=== PATIENT | female | born 1950 | race Caucasian/White ===

== ENCOUNTER 2020-08-06 11:54 | Inpatient (IN) | payer OTHER, MEDICARE, SELFPAY ==
[~2020-08-06] VITALS: Ht 160 cm; Wt 77.1 kg
[2020-08-06 12:15] VITALS: BP_SYST 159
--- NOTE | 2020-08-06 12:15 | NUR ---
Pt came to ER after having a positive COVID test, states she had worsening symptoms since last night. Pt resting in gurney, AO4, VSS, O2 WNL, pt shows no obvious signs of distress.
--- NOTE | 2020-08-06 12:15 | NUR ---
Patient to ER bed 8 to gown for evaluation. Side rails up.
--- NOTE | 2020-08-06 12:25 | NUR ---
ER at bedside examining patient.
[2020-08-06 13:17] LABS: BASOPHILS % (AUTO) 0.3 % (0.0-2.0); EOSINOPHILS % (AUTO) 0.1 % (0.0-4.0); HEMATOCRIT 38.7 % (36-48); HEMOGLOBIN 12.9 g/dL (12.0-16.0); LYMPHOCYTES # (AUTO) 0.6 K/uL (1.0-5.5); LYMPHOCYTES % (AUTO) 12.5 % (20.5-51.5); MEAN CORPUSCULAR HEMOGLOBIN 30 pg (27-31); MEAN CORPUSCULAR HGB CONC 33 % (32-36); MEAN CORPUSCULAR VOLUME 90 fL (79.0-98.0); MONOCYTES # (AUTO) 0.6 K/uL (0.0-1.0); MONOCYTES % (AUTO) 11.5 % (1.7-9.3); NEUTROPHILS # (AUTO) 3.9 K/uL (1.8-7.7); NEUTROPHILS % (AUTO) 75.6 % (40.0-70.0); PLATELET COUNT (AUTO) 185 K/uL (130-430); RED CELL DISTRIBUTION WIDTH 13.6 % (9.0-15.0); WHITE BLOOD COUNT (AUTO) 5.2 K/uL (4.8-10.8)
--- NOTE | 2020-08-06 13:20 | NUR ---
Pt resting in gurney O2 sat WNL may desat with activity
[2020-08-06 13:22] LABS: ANION GAP 8 (5-15); CALCIUM 9.4 mg/dL (8.4-11.0); CHLORIDE 100 mmol/L (98-107); CREATININE 1.59 mg/dL (0.55-1.30); GLUCOSE 136 mg/dL (70-99); POTASSIUM 3.9 mmol/L (3.5-5.1); SODIUM SERUM 134 mmol/L (136-145); UREA NITROGEN, BLOOD 34 mg/dL (8-21)
[2020-08-06 13:27] LABS: ALANINE AMINOTRANSFERASE 25 U/L (12-78); ALBUMIN 3.1 g/dL (3.4-4.8); ASPARTATE AMINOTRANSFERASE 30 U/L (10-37); C-REACTIVE PROTEIN QUANT 8.4 mg/dL (0-0.5); LACTATE DEHYDROGENASE 200 U/L (81-234); TOTAL BILIRUBIN 0.5 mg/dL (0.0-1.0)
[2020-08-06 13:28] LABS: INR 0.9 (0.8-1.2); PROTHROMBIN TIME 9.7 SECS (9.5-12.5)
[2020-08-06] MEDS ORDERED: DEXAMETHASONE SOD PHOSPHATE 10 MG/ML VIAL IVP ONE (13:45)
[2020-08-06] MEDS ORDERED: NACL 0.9% 1,000 ML IV ONE (13:45)
--- NOTE | 2020-08-06 14:56 | NUR ---
Pt resting in [facility] no distress noted.
--- NOTE | 2020-08-06 15:52 | NUR ---
Patient will be admitted to care of [facility]. Admitted to Tele unit. Will go to room 124B. Belongings list completed. Complete and up to date summary report printed. SBAR report to be given at bedside with opportunity for questions.
--- NOTE | 2020-08-06 16:40 | NUR ---
CONSULTATION PAGED/CALLED Reason for Consultation: ID Person Who was Notified: MADELYN Consulting Physician: STAN Dressage Instructor Specialty: ID Ordering Physician: Rebecca LOERA
[2020-08-06 16:50] VITALS: BP_SYST 136
--- NOTE | 2020-08-06 17:00 | NUR ---
Note Pt arrived on floor from ED via gurney. No SOB/resp distress or pain/discomfort noted at this time. Pt was oriented to nursing routines and procedures Pt oriented to call light and questions/concerns were answered at this time. IV in right hand intact and patent. Call light within reach.
--- NOTE | 2020-08-06 19:00 | NUR ---
Note Pt sitting up in bed eating her dinner. No SOB/resp distress or pain/discomfort noted all shift. Tele unit attached and intact all shift (applied on admission to floor). IV in right hand intact and patent infusing IVF's well. Pt was checked on q1' and PRN for needs and care. Pt was checked on for safety and isolation precautions all shift. Pt's bed in low position and side rails up. No needs noted all shift. Call light within reach.
--- NOTE | 2020-08-06 19:20 | NUR ---
Report received from day shift nurse. Pt is lying in bed fully awake, alert and oriented x4. Pt is on room air and oxygen saturation is 92%. No shortness of breath noted at this time. Pt denies pain or discomfort. IV site in right hand is without any signs of infiltration. Fall, droplet isolation and safety precautions are in place. Call light is with pt and bed is in lowest/locked positions.
[2020-08-06 20:00] VITALS: BP_SYST 124
--- NOTE | 2020-08-06 21:00 | NUR ---
Pt is resting quietly in bed. No c/o pain or discomfort. Fall, droplet isolation and safety precautions are in place.
[2020-08-06] MEDS ORDERED: NALOXONE HCL 0.4 MG/ML AMP (NARCAN) IVP PRN ×2 (21:45)
[2020-08-06] MEDS ORDERED: HYDROcodone/ACETAMIN 10-325 MG TAB PO PRN (21:45)
[2020-08-06] MEDS ORDERED: HYDROcodone/ACETAMIN 5-325 MG TAB (NORCO/ VICODIN) PO PRN (21:45)
[2020-08-06] MEDS ORDERED: LORazepam 2 MG/ML VIAL IVP PRN (21:45)
[2020-08-06] MEDS ORDERED: ONDANSETRON HCL 4 MG/2 ML VIAL IVP PRN (21:45)
[2020-08-06] MEDS ORDERED: ACETAMINOPHEN 325 MG TABLET PO PRN (21:45)
[2020-08-06] MEDS ORDERED: *HEPARIN PER PHARMACY XX ONE (21:45)
[2020-08-06] MEDS ORDERED: ALBUTEROL SULFATE 0.083% 2.5 MG/3 ML VIAL.NEB INH PRN (21:45)
[2020-08-06] MEDS ORDERED: HEPARIN SODIUM,PORCINE 3000 UNITS/0.6 ML BOLUS IVP PRN (22:00)
[2020-08-06] MEDS ORDERED: NORMAL SALINE 5 ML DISP.SYRIN IVF SCH (22:00)
[2020-08-06] MEDS ORDERED: HEPARIN SODIUM,PORCINE 2000 UNITS/0.4 ML BOLUS IVP PRN (22:00)
[2020-08-06] MEDS ORDERED: HEPARIN SODIUM,PORCINE 5,000 UNITS/ML VIAL IV ONE (22:15)
--- NOTE | 2020-08-06 22:30 | NUR ---
New IV line started in left hand with Angiocath 22G after four attempts by 2 RNs. Heparin drip and IV antibiotic to be started tonight as ordered by Dr. Den Ramon.
[2020-08-06] MEDS: HEPARIN 25,000 UNITS in 250 ML PREMIX IV PRN (22:55)
[2020-08-06] MEDS: NORMAL SALINE 5 ML DISP.SYRIN IVF SCH (22:55)
--- NOTE | 2020-08-06 22:55 | NUR ---
Heparin drip started in right hand at 1400 units/hr (14ml/hr) after bolus dose of 6,000 units was given IVP per dosing by Pharmacist. IV site is without any signs of infiltration. Will order PTT for 0455. Pt is resting quietly in bed. No c/o pain or discomfort.
[2020-08-06] MEDS: cefTRIAXone 1 GM IVPB PREMIX 50 ML IV SCH (23:34)
[2020-08-06] MEDS ORDERED: AZITHROMYCIN 500 MG/VIAL (ZITHROMAX) IV ONE (23:46)
[2020-08-06] MEDS ORDERED: cefTRIAXone 1 GM IVPB PREMIX 50 ML IV ONE (23:46)
[2020-08-06] MEDS: AZITHROMYCIN 500 MG in NS 250 ML IV SCH (23:54)
[2020-08-07] VITALS: BP_SYST 137
--- NOTE | 2020-08-07 01:00 | NUR ---
Heparin drip is infusing well in RH. No signs of active bleeding noted. Call light is with pt and bed is in lowest/locked positions.
--- NOTE | 2020-08-07 02:30 | NUR ---
Pt ambulated to the bathroom and back to bed with steady gait. Pt thought she was going to have a bowel movement, but pt passed gas only. No c/o pain or discomfort. Call light is with pt and bed is in the lowest/locked positions.
--- NOTE | 2020-08-07 03:03 | NUR ---
CONSULTATION PAGED/CALLED Reason for Consultation: DYLAN Person Who was Notified: NORMA Consulting Physician: DR. IQBAL Weight Recorder Specialty: Ordering Physician: DR. Den LOERA
--- NOTE | 2020-08-07 03:55 | NUR ---
Pt is sleeping without any distress noted. Heparin drip is infusing well in right hand at 1400 units/hr (14ml/hr) without any signs of infiltration. No evidence of active bleeding noted. Call light is with pt and bed is in the lowest/locked positions.
--- NOTE | 2020-08-07 05:00 | NUR ---
Pt ambulated to the bathroom with steady gait and voided clear yellowish urine. No c/o pain or discomfort. Heparin drip is infusing well in right hand.
--- NOTE | 2020-08-07 05:15 | NUR ---
0515 PTT result still pending. Report given to day shift nurse.
[2020-08-07] MEDS: NORMAL SALINE 5 ML DISP.SYRIN IVF SCH ×3 (05:44→21:06)
[2020-08-07] MEDS: DEXAMETHASONE SOD PHOSPHATE 10 MG/ML VIAL IVP SCH (06:01)
--- NOTE | 2020-08-07 06:28 | NUR ---
Pt is resting comfortably in bed. 0515 PTT result still pending. Heparin drip is infusing well at 1400 units/hr (14ml/hr) in right hand without any signs of infiltration. Fall, droplet isolation and safety precautions are in place. Will endorse to day shift nurse.
[2020-08-07 06:51] LABS: BASOPHILS % (AUTO) 0.1 % (0.0-2.0); HEMATOCRIT 34.8 % (36-48); HEMOGLOBIN 11.7 g/dL (12.0-16.0); LYMPHOCYTES # (AUTO) 0.5 K/uL (1.0-5.5); LYMPHOCYTES % (AUTO) 8.9 % (20.5-51.5); MEAN CORPUSCULAR HEMOGLOBIN 30 pg (27-31); MEAN CORPUSCULAR HGB CONC 34 % (32-36); MEAN CORPUSCULAR VOLUME 89 fL (79.0-98.0); MONOCYTES # (AUTO) 0.6 K/uL (0.0-1.0); MONOCYTES % (AUTO) 12.3 % (1.7-9.3); NEUTROPHILS # (AUTO) 4.1 K/uL (1.8-7.7); NEUTROPHILS % (AUTO) 78.7 % (40.0-70.0); PLATELET COUNT (AUTO) 187 K/uL (130-430); RED BLOOD CELL COUNT(AUTO) 3.91 MIL/uL (4.2-6.2); RED CELL DISTRIBUTION WIDTH 13.1 % (9.0-15.0); WHITE BLOOD COUNT (AUTO) 5.2 K/uL (4.8-10.8)
[2020-08-07] MEDS: IPRATROPIUM BROM 0.5 MG/2.5 ML VIAL.NEB (ATROVENT) INH SCH ×5 (07:00→23:00)
[2020-08-07 07:01] LABS: ANION GAP 9 (5-15); CALCIUM 8.4 mg/dL (8.4-11.0); CHLORIDE 104 mmol/L (98-107); CREATININE 1.35 mg/dL (0.55-1.30); GLUCOSE 142 mg/dL (70-99); PHOSPHORUS 2.3 mg/dL (2.7-4.5); POTASSIUM 3.6 mmol/L (3.5-5.1); SODIUM SERUM 138 mmol/L (136-145); UREA NITROGEN, BLOOD 31 mg/dL (8-21)
[2020-08-07 07:44] LABS: C-REACTIVE PROTEIN QUANT 7.6 mg/dL (0-0.5)
[2020-08-07 08:00] VITALS: BP_SYST 133
--- NOTE | 2020-08-07 08:00 | NUR ---
Note Pt sitting up in bed eating her breakfast with O2 on at 2L/nc. Tele unit attached and intact at this time. Left hand IV and right hand IV intact and patent at this time. No SOB/resp distress or pain/discomfort noted at this time. No needs noted. Call light within reach. Bed in low position and side rails raised. Addendum: 08/07/20 at 1157 by Yessy Longo RN PTT results back - Heparin rate adjusted and bolus given IVP.
[2020-08-07] MEDS: HEPARIN 25,000 UNITS in 250 ML PREMIX IV PRN ×2 (08:01→14:22)
[2020-08-07 08:49] LABS: ERYTHROCYTE SEDIMENTATION RATE 53 MM/HR (0-20)
--- NOTE | 2020-08-07 09:40 | NUR ---
Note Dr Alvarez (nephro) on the floor to assess pt and check labs at this time.
--- NOTE | 2020-08-07 09:45 | NUR ---
Note Dr Bowen ([facility]) on the floor to assess pt and check labs. spoke to pt's daughter in law and answered questions/concerns at this time.
[2020-08-07 10:15] VITALS: BP_SYST 133
--- NOTE | 2020-08-07 11:50 | NUR ---
Note Dr Connelly on the floor to assess pt and check labs. US renal was done at bedside at this time. Pt tolerated procedure well. Pt was assisted with standby assist to restroom with IV pole. Pt ambulated with steady gait. No needs noted at this time. Call light within reach.
[2020-08-07 12:00] VITALS: BP_SYST 122
--- NOTE | 2020-08-07 12:00 | NUR ---
Note Dr Connelly was asked if COVID PCR test needs to done now here at the hospital (pt is positive COVID from 10 days ago diagnosis)
--- NOTE | 2020-08-07 12:50 | NUR ---
Note mathematics technician at pt's bedside to do 2D-echo at this time.
[2020-08-07] MEDS ORDERED: CHOLECALCIFEROL (VITAMIN D3) 2,000 UNIT TABLET PO ONE (13:00)
[2020-08-07] MEDS ORDERED: ASCORBIC ACID 500 MG TABLET PO ONE (13:00)
--- NOTE | 2020-08-07 14:35 | NUR ---
Note Pt resting in bed with Heparin Drip infusing through left hand IV site. Dr Connelly explained the Convalescent Plasma that pt is going to receive - questions/concerns were answered at this time. Pt gave verbal consent for Convalescent Plasma - consent signed and pt's family member - Minnie(working in Admitting dept) - was notified.
--- NOTE | 2020-08-07 15:28 | NUR ---
Note Pt told Dr Connelly that she got tested for COVID in [place] - where she tested positive. Pt's family member Minnie called phone number that pt gave for [facility] where she was tested - only answering machine comes on - can't leave message per family member. Minnie wanted to check if pt can be tested again for COVID here at this facility.
[2020-08-07 16:00] VITALS: BP_SYST 127
--- NOTE | 2020-08-07 16:10 | NUR ---
Note Heparin Drip stopped - PTT at 300 H at this time. MD to be notified.
--- NOTE | 2020-08-07 17:15 | NUR ---
NOTE PT RECEIVED ONE UNIT OF CONVALESCENT PLASMA (210cc). Completed unit at this time.
--- NOTE | 2020-08-07 17:45 | NUR ---
Note Dr Brent Ramon on the floor and order for stopping Heparin Drip given.
--- NOTE | 2020-08-07 18:10 | NUR ---
Note Pt sitting up in bed eating her dinner. No SOB/resp distress or pain/discomfort noted at this time. Tele unit attached and intact. IV in left forearm (2) intact and patent. Pt was checked on q1' and PRN all shift for needs and care. Pt was maintained with safety and isolation precautions all shift. Bed in low position and side rails raised X2. No needs noted at this time. Call light within reach. Pt has O2 at 2L/nc on all shift for O2 sats at 95%.
--- NOTE | 2020-08-07 19:34 | NUR ---
REPORT Received report from day nurse, patient sitting up in bed, aox4, on 02 2L NC, sinus rhythm in the heart monitor.
[2020-08-07 20:00] VITALS: BP_SYST 133
[2020-08-07] MEDS: cefTRIAXone 1 GM IVPB PREMIX 50 ML IV SCH (20:30)
--- NOTE | 2020-08-07 20:37 | NUR ---
RN ROUNDS/MED PASS Patient lying in bed, watching tv, on room air, vitals stable, denies any pain or discomfort at this time, IV lines to left forearm and wrist intact and patent, no signs of infiltration noted. Started on IV antibiotics, educated on use and side effects of medications, patient verbalized understanding, plan of care discussed with patient, oriented to use call light for nurse assistance, safety and isolation precautions in place.
[2020-08-07] MEDS: AZITHROMYCIN 500 MG in NS 250 ML IV SCH (21:06)
--- NOTE | 2020-08-07 21:50 | NUR ---
Assumed nursing care of pt from nurse Wesley. Pt is fully awake, alert and oriented x4. Pt has non-productive cough, but no SOB noted. Pt is on oxygen at 2L/min per NC. IV Zithromax is infusing well in left wrist without any signs of infiltration. Call light is with pt and bed is in the lowest/locked positions.
--- NOTE | 2020-08-07 22:25 | NUR ---
Novel Shaver Virus PCR nasal swab specimen collected and sent to the lab. Pt remains fully awake, alert and oriented x4. No acute distress noted at this time. Fall, droplet isolation and safety precautions are in place.
[2020-08-08] VITALS: BP_SYST 124
--- NOTE | 2020-08-08 | NUR ---
No c/o pain or discomfort and no shortness of breath noted. Fall, droplet isolation and safety precautions are in place.
--- NOTE | 2020-08-08 02:15 | NUR ---
Pt is sleeping without any respiratory distress noted. Call light is with pt and bed is in the lowest/locked positions.
[2020-08-08] MEDS: IPRATROPIUM BROM 0.5 MG/2.5 ML VIAL.NEB (ATROVENT) INH SCH ×3 (03:00→23:00)
--- NOTE | 2020-08-08 04:28 | NUR ---
Pt is sleeping without any distress noted. Call light is with pt and bed is in the lowest/locked positions.
[2020-08-08] MEDS: NORMAL SALINE 5 ML DISP.SYRIN IVF SCH ×3 (06:00→21:04)
[2020-08-08] MEDS: DEXAMETHASONE SOD PHOSPHATE 10 MG/ML VIAL IVP SCH (06:01)
--- NOTE | 2020-08-08 06:22 | NUR ---
Pt is awake and resting comfortably in bed. No c/o pain or discomfort. Fall, droplet isolation and safety precautions are in place. Will endorse to day shift nurse.
[2020-08-08 07:15] LABS: HEMATOCRIT 33.3 % (36-48); HEMOGLOBIN 11.2 g/dL (12.0-16.0); LYMPHOCYTES # (AUTO) 0.7 K/uL (1.0-5.5); LYMPHOCYTES % (AUTO) 5.9 % (20.5-51.5); MEAN CORPUSCULAR HEMOGLOBIN 30 pg (27-31); MEAN CORPUSCULAR HGB CONC 34 % (32-36); MEAN CORPUSCULAR VOLUME 89 fL (79.0-98.0); MONOCYTES % (AUTO) 9.1 % (1.7-9.3); NEUTROPHILS # (AUTO) 9.5 K/uL (1.8-7.7); PLATELET COUNT (AUTO) 231 K/uL (130-430); RED BLOOD CELL COUNT(AUTO) 3.75 MIL/uL (4.2-6.2); RED CELL DISTRIBUTION WIDTH 13.4 % (9.0-15.0); WHITE BLOOD COUNT (AUTO) 11.1 K/uL (4.8-10.8)
--- NOTE | 2020-08-08 07:30 | NUR ---
OPENING NOTES: RECEIVED PATIENT FROM DIRECT CHILL CASTER NURSE. PATIENT IS ASLEEP LAYING DOWN IN BED. PATIENT IS TOLERATING OXYGEN ON 2 L NASAL CANNULA WITH NO SIGNS OF DISTRESS OR SHORTNESS OF BREATH NOTED. IV SITES ARE PATENT WITH NO SIGNS OF INFILTRATION NOTED. PATIENT IN STABLE CONDITION. SAFETY, FALL, ASPIRATION AND CONTACT/DROPLET PRECAUTIONS ARE IN PLACE. BED LOCKED IN LOWEST POSITION WITH CALL LIGHT IN REACH. WILL CONTINUE TO MONITOR PATIENT FOR ANY CHANGES.
[2020-08-08 07:38] LABS: ALANINE AMINOTRANSFERASE 34 U/L (12-78); ALBUMIN 2.7 g/dL (3.4-4.8); ANION GAP 11 (5-15); ASPARTATE AMINOTRANSFERASE 30 U/L (10-37); CALCIUM 8.6 mg/dL (8.4-11.0); CHLORIDE 109 mmol/L (98-107); GLUCOSE 102 mg/dL (70-99); PHOSPHORUS 2.5 mg/dL (2.7-4.5); POTASSIUM 3.9 mmol/L (3.5-5.1); SODIUM SERUM 143 mmol/L (136-145); TOTAL BILIRUBIN 0.2 mg/dL (0.0-1.0); UREA NITROGEN, BLOOD 38 mg/dL (8-21)
--- NOTE | 2020-08-08 08:10 | NUR ---
MD ROUNDS: DR. BOLAND MAKING HIS ROUNDS. AWARE OF PATIENT'S CONDITION. NO NEW ORDERS GIVEN.
[2020-08-08 08:18] VITALS: BP_SYST 138
[2020-08-08 08:18] LABS: C-REACTIVE PROTEIN QUANT 3.1 mg/dL (0-0.5)
[2020-08-08] MEDS: ASCORBIC ACID 500 MG TABLET PO SCH (08:18)
[2020-08-08] MEDS: CHOLECALCIFEROL (VITAMIN D3) 2,000 UNIT TABLET PO SCH (08:18)
--- NOTE | 2020-08-08 08:30 | NUR ---
MD CALLED: SPOKE WITH DR. BARRETT REGARDING PATIENT. MD AWARE OF PATIENT'S STATUS. NO NEW ORDERS GIVEN.
[2020-08-08 08:39] LABS: ERYTHROCYTE SEDIMENTATION RATE 53 MM/HR (0-20)
--- NOTE | 2020-08-08 10:08 | NUR ---
RN ROUNDS: PATIENT IS AWAKE AND ALERT x4 LAYING DOWN IN BED. PATIENT IS TOLERATING OXYGEN ON 2 L NASAL CANNULA WITH NO SIGNS OF DISTRESS OR SHORTNESS OF BREATH NOTED. IV SITES ARE PATENT WITH NO SIGNS OF INFILTRATION NOTED. PATIENT IN STABLE CONDITION. WILL CONTINUE TO MONITOR PATIENT FOR ANY CHANGES.
[2020-08-08 12:09] VITALS: BP_SYST 135
--- NOTE | 2020-08-08 12:10 | NUR ---
RN ROUNDS: PATIENT IS LAYING DOWN IN BED. PATIENT IS AWAKE AND ALERT x4. PATIENT DENIES ANY PAIN AT THE MOMENT. PATIENT IS TOLERATING OXYGEN ON 2 L NASAL CANNULA WITH NO SIGNS OF DISTRESS OR SHORTNESS OF BREATH NOTED. IV SITES ARE PATENT WITH NO SIGNS OF INFILTRATION NOTED. LUNCH GIVEN TO PATIENT. PATIENT IS IN STABLE CONDITION. WILL CONTINUE TO MONITOR PATIENT FOR ANY CHANGES.
--- NOTE | 2020-08-08 14:50 | NUR ---
RN ROUNDS: PATIENT IS AWAKE AND ALERT x4 LAYING DOWN IN BED. PATIENT DENIES ANY PAIN AT THE MOMENT. PATIENT IS TOLERATING OXYGEN ON 2 L NASAL CANNULA WITH NO SIGNS OF DISTRESS OR SHORTNESS OF BREATH NOTED. PATIENT STATES SHE WAS ABLE TO COUGH UP SOME MUCUS AND HAD A BOWEL MOVEMENT. PATIENT IN STABLE CONDITION. WILL CONTINUE TO MONITOR PATIENT FOR ANY CHANGES.
--- NOTE | 2020-08-08 16:35 | NUR ---
RN ROUNDS: PATIENT IS ASLEEP LAYING DOWN IN BED. PATIENT IS TOLERATING OXYGEN ON 2 L NASAL CANNULA WITH NO SIGNS OF DISTRESS OR SHORTNESS OF BREATH NOTED. IV SITE IS PATENT WITH NO SIGNS OF INFILTRATION NOTED. PATIENT IN STABLE CONDITION. WILL CONTINUE TO MONITOR PATIENT FOR ANY CHANGES.
[2020-08-08 16:49] VITALS: BP_SYST 137
[2020-08-08] MEDS ORDERED: APIXABAN 2.5 MG TABLET PO ONE (17:00)
[2020-08-08] MEDS ORDERED: NA PHOS 15 MM in NS 250 ML IV ONE (18:00)
--- NOTE | 2020-08-08 18:25 | NUR ---
CLOSING NOTES: PATIENT IS AWAKE AND ALERT x4 SITTING AT THE SIDE OF THE BED. PATIENT IS TOLERATING OXYGEN ON 2 L NASAL CANNULA WITH NO SIGNS OF DISTRESS OR SHORTNESS OF BREATH NOTED. IV SITES ARE PATENT WITH NO SIGNS OF INFILTRATION NOTED. PATIENT IN STABLE CONDITION. SAFETY, FALL, ASPIRATION AND CONTACT/DROPLET PRECAUTIONS REMAINED IN PLACE THROUGHOUT THE SHIFT. BED LOCKED IN LOWEST POSITION WITH CALL LIGHT IN REACH. WILL ENDORSE PATIENT CARE TO ONCOMING ASP NET C DEVELOPER NURSE.
--- NOTE | 2020-08-08 18:34 | NUR ---
Paged Tristen Esteves
--- NOTE | 2020-08-08 18:52 | NUR ---
IV SODIUM PHOSPHATE: UNABLE TO GIVE SODIUM PHOSPHATE SCHEDULED DUE TO PHARMACY BEING CLOSED. PAGED DR. LOERA TO ASK IF IT CAN BE GIVEN IN THE MORNING WHEN THE PHARMACIST IS HERE. AWAITING CALL BACK. WILL ENDORSE TO WORLD LANGUAGE TEACHER NURSE.
--- NOTE | 2020-08-08 19:50 | NUR ---
OPENING NOTE RECEIVED PATIENT AWAKE, AOX4 IN BED WITH NO SIGNS OF DISTRESS NOTED. RESPIRATIONS EVEN AND UNLABORED ON OXYGEN 2LPM VIA NASAL CANNULA. IV SITES PATENT AND INTACT, FLUSHING WELL WITH NO SIGNS OF INFILTRATION NOTED. SAFETY, FALL, ASPIRATION, AND CONTACT/DROPLET PRECAUTIONS IN PLACE. BED LOCKED IN LOW POSITION WITH CALL LIGHT IN REACH. WILL CONTINUE TO MONITOR.
[2020-08-08 20:00] VITALS: BP_SYST 137
--- NOTE | 2020-08-08 21:00 | NUR ---
MEDICATION PASS PATIENT TOLERATED ALL MEDICATIONS ORDERED. PATIENT REMOVED OXYGEN WHEN AMBULATED STEADILY TO RESTROOM, SOB NOTED ON EXERTION. PULSE OXYGEN 93%. OXYGEN 2LPM VIA NASAL CANNULA REPLACED, PULSE OXYGEN 95%. NO FURTHER SIGNS OF SOB NOTED. WILL CONTINUE TO MONITOR.
[2020-08-08] MEDS: AZITHROMYCIN 500 MG in NS 250 ML IV SCH (21:03)
[2020-08-08] MEDS: cefTRIAXone 1 GM IVPB PREMIX 50 ML IV SCH (21:04)
--- NOTE | 2020-08-09 | NUR ---
RN ROUNDS PATIENT RESTING. NO RESPIRATORY DISTRESS NOTED. CALL LIGHT REMAINS IN REACH. WILL CONTINUE TO MONITOR.
--- NOTE | 2020-08-09 01:15 | NUR ---
BRADYCARDIA PATIENT IN BRADYCARDIC ON THE MONITOR, HEART RATE 42BPM. WOKE PATIENT FROM SLEEP, PATIENT STATES SHE'S OK AND FEELS FINE. PATIENT ASYMPTOMATIC AT THIS TIME WILL CONTINUE TO MONITOR.
[2020-08-09] MEDS: IPRATROPIUM BROM 0.5 MG/2.5 ML VIAL.NEB (ATROVENT) INH SCH ×6 (03:00→23:00)
[2020-08-09 04:00] VITALS: BP_SYST 132
[2020-08-09] MEDS: NORMAL SALINE 5 ML DISP.SYRIN IVF SCH ×3 (06:00→20:37)
[2020-08-09] MEDS: DEXAMETHASONE SOD PHOSPHATE 10 MG/ML VIAL IVP SCH (06:00)
--- NOTE | 2020-08-09 06:25 | NUR ---
CLOSING NOTE PATIENT AWAKE IN BED WITH NO SIGNS OF DISTRESS NOTED. RESPIRATIONS EVEN AND UNLABORED ON OXYGEN 2LPM VIA NASAL CANNULA. NO SIGNS OF SOB NOTED. HR 61, NO SIGNS OF BRADYCARDIA NOTED. IV PATENT AND INTACT, SALINE LOCKED, FLUSHING WELL WITH NO SIGNS OF INFILTRATION NOTED. PATIENT TOLERATED ALL MEDICATIONS ORDERED. ALL NEEDS MET AT THIS TIME. SAFETY, FALL, ASPIRATION, AND ISOLATION PRECAUTIONS MAINTAINED. PATIENT STABLE. WILL CONTINUE T MONITOR UNTIL ENDORSED TO AM NURSE.
[2020-08-09 06:37] LABS: BASOPHILS % (AUTO) 0.2 % (0.0-2.0); HEMATOCRIT 31.4 % (36-48); HEMOGLOBIN 10.8 g/dL (12.0-16.0); LYMPHOCYTES # (AUTO) 0.6 K/uL (1.0-5.5); LYMPHOCYTES % (AUTO) 5.4 % (20.5-51.5); MEAN CORPUSCULAR HEMOGLOBIN 31 pg (27-31); MEAN CORPUSCULAR HGB CONC 34 % (32-36); MEAN CORPUSCULAR VOLUME 88 fL (79.0-98.0); MONOCYTES # (AUTO) 1.1 K/uL (0.0-1.0); MONOCYTES % (AUTO) 8.9 % (1.7-9.3); NEUTROPHILS # (AUTO) 10.3 K/uL (1.8-7.7); NEUTROPHILS % (AUTO) 85.5 % (40.0-70.0); PLATELET COUNT (AUTO) 227 K/uL (130-430); RED BLOOD CELL COUNT(AUTO) 3.55 MIL/uL (4.2-6.2); WHITE BLOOD COUNT (AUTO) 12.1 K/uL (4.8-10.8)
[2020-08-09 07:15] LABS: ERYTHROCYTE SEDIMENTATION RATE 49 MM/HR (0-20)
[2020-08-09 07:39] LABS: ALANINE AMINOTRANSFERASE 43 U/L (12-78); ALBUMIN 2.5 g/dL (3.4-4.8); ANION GAP 11 (5-15); ASPARTATE AMINOTRANSFERASE 30 U/L (10-37); CALCIUM 8.5 mg/dL (8.4-11.0); CHLORIDE 108 mmol/L (98-107); CREATININE 1.32 mg/dL (0.55-1.30); GLUCOSE 124 mg/dL (70-99); POTASSIUM 3.8 mmol/L (3.5-5.1); SODIUM SERUM 143 mmol/L (136-145); TOTAL BILIRUBIN 0.2 mg/dL (0.0-1.0); UREA NITROGEN, BLOOD 33 mg/dL (8-21)
[2020-08-09 07:40] LABS: C-REACTIVE PROTEIN QUANT 2.5 mg/dL (0-0.5); PHOSPHORUS 2.6 mg/dL (2.7-4.5)
[2020-08-09 08:00] VITALS: BP_SYST 136
--- NOTE | 2020-08-09 08:00 | NUR ---
A/OX4, ON 2 L NASAL CANNULA, V/S STABLE, NO APPARENT DISTRESS NOTED. IV SITE IS INTACT AND PATENT. INSTRUCTED ON POC, CALL LIGHT, WHICH IS IN NEAR PATIENT. BED LOCKED IN LOWEST POSITION. WILL CONTINUE TO MONITOR
[2020-08-09] MEDS: APIXABAN 2.5 MG TABLET PO SCH ×2 (08:09→20:27)
[2020-08-09] MEDS: ASCORBIC ACID 500 MG TABLET PO SCH (08:09)
[2020-08-09] MEDS: CHOLECALCIFEROL (VITAMIN D3) 2,000 UNIT TABLET PO SCH (08:09)
--- NOTE | 2020-08-09 10:14 | NUR ---
Patient is taking to the bathroom. Tolerated without visible distress.
[2020-08-09 12:00] VITALS: BP_SYST 150
--- NOTE | 2020-08-09 12:30 | NUR ---
Patient is eating lunch at this time, no signs of distress noted.
--- NOTE | 2020-08-09 13:02 | NUR ---
Patient is seen ambulating to the bathroom and back. O2 sat at mid 80s%. Patient is then placed on O2 2L NC, and her O2 rebounded to low 90s% in about 1 minute.
[2020-08-09 15:18] VITALS: BP_SYST 154
--- NOTE | 2020-08-09 15:18 | NUR ---
BP 154/70. Dr. Batres is called, and order is given.
[2020-08-09] MEDS ORDERED: cloNIDine HCL 0.1 MG TABLET PO PRN (15:30)
--- NOTE | 2020-08-09 15:52 | NUR ---
Case mgt: Per nurse Hussain, pt is ambulating to BR and back, but desaturates to upper 80s...he will document. Assessing for possible need for home 02..case mgt to f/u with MDs/patient regarding dc planning. SHARAD LEONARDO
--- NOTE | 2020-08-09 18:00 | NUR ---
Patient is eating dinner at this time. No signs of distress noted.
--- NOTE | 2020-08-09 19:15 | NUR ---
OPENING NOTE/REMOVED IV SITE REPORT RECEIVED FROM DAYSHIFT NURSE. PATIENT RECEIVED LYING IN BED, WATCHING TV, HOB RAISED, AOX4, NO S/S OF ACUTE DISTRESS NOTED. BREATHING EVEN AND UNLABORED, NASAL CANULA ATTACHED PROPERLY, ON 2L OF OXYGEN. IV SITE REMOVED ON LEFT FOREARM, INFILTRATION NOTED, PATIENT COMPLAINING OF PAIN, CATHETER FULLY INTACT, NO ACTIVE BLEEDING NOTED. IV SITE ON LEFT WRIST PATENT, NO SIGNS OF INFILTRATION OR INFECTION NOTED. CALL LIGHT WITH PATIENT, PATIENT VERBALIZED AND DEMONSTRATED BACK PROPER USE. BED IS LOCKED AND AT LOWEST POSITION. WILL CONTINUE TO MONITOR.
[2020-08-09 20:00] VITALS: BP_SYST 159
[2020-08-09] MEDS: cefTRIAXone 1 GM IVPB PREMIX 50 ML IV SCH (20:37)
--- NOTE | 2020-08-09 21:00 | NUR ---
IV ANTIBIOTIC/VOID PATIENT AMBULATED TO BATHROOM AND BACK, TOLERATED WELL, GAIT STEADY. SECOND ANTIBIOTIC ADMINISTERED AT THIS TIME, INFUSING WELL. WILL CONTINUE TO MONITOR.
[2020-08-09] MEDS: AZITHROMYCIN 500 MG in NS 250 ML IV SCH (21:25)
--- NOTE | 2020-08-09 23:00 | NUR ---
ROUNDS PATIENT IN BED, SLEEPING AT THIS TIME. NO S/S OF ACUTE DISTRESS NOTED. CALL LIGHT WITH PATIENT. WILL CONTINUE TO MONITOR.
[2020-08-10] VITALS: BP_SYST 152
--- NOTE | 2020-08-10 01:00 | NUR ---
ROUNDS PATIENT SLEEPING. NO S/S OF ACUTE DISTRESS NOTED. BREATHING EVEN AND UNLABORED. CALL LIGHT WITH PATIENT. WILL CONTINUE TO MONITOR.
[2020-08-10] MEDS: IPRATROPIUM BROM 0.5 MG/2.5 ML VIAL.NEB (ATROVENT) INH SCH ×3 (03:00→11:00)
--- NOTE | 2020-08-10 03:00 | NUR ---
ROUNDS PATIENT SLEEPING. NO CHANGE IN PREVIOUS CONDITION. ALL NEEDS MET. WILL CONTINUE TO MONITOR.
--- NOTE | 2020-08-10 05:00 | NUR ---
ROUNDS PATIENT IN BED, SLEEPING AT THIS TIME. NO SIGNS OF DISCOMFORT NOTED. CHEST RISE AND FALL EVEN BILATERALLY. CALL LIGHT WITH PATIENT. WILL CONTINUE TO MONITOR.
[2020-08-10] MEDS: NORMAL SALINE 5 ML DISP.SYRIN IVF SCH ×3 (06:00→21:00)
[2020-08-10] MEDS: DEXAMETHASONE SOD PHOSPHATE 10 MG/ML VIAL IVP SCH (06:00)
--- NOTE | 2020-08-10 06:52 | NUR ---
CLOSING NOTE/HYGIENE PATIENT IN BED, AWAKE, NO S/S OF ACUTE DISTRESS NOTED. BREATHING EVEN AND UNLABORED. NASAL CANULA ATTACHED PROPERLY. IV SITE IS PATENT, NO SIGNS OF INFILTRATION OR INFECTION NOTED. HYGIENE SUPPLIES GIVEN TO PATIENT. ALL NEEDS MET THROUGHOUT SHIFT. FALL, SAFETY, AND ISOLATION PRECAUTIONS MAINTAINED THROUGHOUT SHIFT. WILL CONTINUE TO MONITOR UNTIL PATIENT CARE IS ENDORSED TO ONCOMING DAYSHIFT NURSE.
[2020-08-10 08:00] VITALS: BP_SYST 157
--- NOTE | 2020-08-10 08:00 | NUR ---
A/OX4, ON 2 L NASAL CANNULA, V/S STABLE, NO APPARENT DISTRESS NOTED. IV SITE AT LEFT WRIST IS INTACT AND PATENT. INSTRUCTED ON POC, CALL LIGHT, WHICH IS IN NEAR PATIENT. BED LOCKED IN LOWEST POSITION. WILL CONTINUE TO MONITOR
[2020-08-10] MEDS: ASCORBIC ACID 500 MG TABLET PO SCH (08:02)
[2020-08-10] MEDS: CHOLECALCIFEROL (VITAMIN D3) 2,000 UNIT TABLET PO SCH (08:02)
[2020-08-10] MEDS: APIXABAN 2.5 MG TABLET PO SCH ×2 (08:29→20:59)
[2020-08-10] MEDS ORDERED: cefTRIAXone 1 GM in D5W 50 ML IV SCH (08:52)
[2020-08-10 09:31] LABS: ANION GAP 11 (5-15); CALCIUM 8.5 mg/dL (8.4-11.0); CHLORIDE 104 mmol/L (98-107); CREATININE 1.19 mg/dL (0.55-1.30); GLUCOSE 158 mg/dL (70-99); SODIUM SERUM 139 mmol/L (136-145); UREA NITROGEN, BLOOD 30 mg/dL (8-21)
[2020-08-10 09:39] LABS: POTASSIUM 4.2 mmol/L (3.5-5.1)
[2020-08-10 09:47] LABS: C-REACTIVE PROTEIN QUANT 1.2 mg/dL (0-0.5)
--- NOTE | 2020-08-10 09:47 | NUR ---
Patient is seen ambulating toward the bathroom and back. Pulse ox at 84-88% on room air, but patient only c/o mild short of breath. Addendum: 08/10/20 at 1339 by Hussain Fried RN O2 sat at rest at 94-95% on 2L NC 1 minute after.
[2020-08-10 09:54] LABS: HEMATOCRIT 36.7 % (36-48); HEMOGLOBIN 12.3 g/dL (12.0-16.0); LYMPHOCYTES # (AUTO) 0.6 K/uL (1.0-5.5); LYMPHOCYTES % (AUTO) 5.7 % (20.5-51.5); MEAN CORPUSCULAR HEMOGLOBIN 30 pg (27-31); MEAN CORPUSCULAR HGB CONC 33 % (32-36); MEAN CORPUSCULAR VOLUME 90 fL (79.0-98.0); MONOCYTES # (AUTO) 0.5 K/uL (0.0-1.0); MONOCYTES % (AUTO) 4.7 % (1.7-9.3); NEUTROPHILS # (AUTO) 10.1 K/uL (1.8-7.7); NEUTROPHILS % (AUTO) 89.6 % (40.0-70.0); PLATELET COUNT (AUTO) 266 K/uL (130-430); RED BLOOD CELL COUNT(AUTO) 4.08 MIL/uL (4.2-6.2); RED CELL DISTRIBUTION WIDTH 13.2 % (9.0-15.0); WHITE BLOOD COUNT (AUTO) 11.2 K/uL (4.8-10.8)
[2020-08-10 11:50] VITALS: BP_SYST 139
--- NOTE | 2020-08-10 12:15 | NUR ---
Patient is seen eating lunch, tolerating without distress.
--- NOTE | 2020-08-10 13:50 | NUR ---
RECEIVED REPORT FROM MALISSA MATTA. PT RESTING IN BED, CHEST RISE AND FALL NOTED. NO ACUTE DISTRESS. ALL NEEDS MET. CALL LIGHT IN REACH. CONTINUE TO MONITOR.
[2020-08-10 15:28] VITALS: BP_SYST 156
--- NOTE | 2020-08-10 15:30 | NUR ---
VITAL SIGNS TAKEN AND STABLE. ALL NEEDS MET. CONTINUE TO MONITOR.
--- NOTE | 2020-08-10 15:47 | NUR ---
DC planning: Faxed referral to [facility] attn: [place]on fax # [phone] , tel [phone] . >> home oxygen: pending ABG's result , PT with 3 step O2 testing. Will send out the referral tomorrow.
[2020-08-10] MEDS: ALBUTEROL MDI INHALATION 8 GM INH INH SCH ×2 (15:58→20:27)
--- NOTE | 2020-08-10 17:53 | NUR ---
GIVEN DINNER TRAY AT BEDSIDE. ALL NEEDS MET. CONTINUE TO MONITOR.
--- NOTE | 2020-08-10 18:47 | NUR ---
CLOSING NOTES PT AWAKE, ALERT, AND ORIENTED, TALKING ON THE PHONE. NONLABORED BREATHING NOTED, RECEIVING 2LPM VIA NASAL CANNULA, TOLERATING WELL. IV LINE INTACT AND PATENT, NO SIGNS OF INFILTRATION NOTED. NO ACUTE DISTRESS NOTED. ALL NEEDS MET. CALL LIGHT IN REACH. FALL AND ASPIRATION PRECAUTIONS IN PLACE. WILL ENDORSE TO NOC NURSE.
--- NOTE | 2020-08-10 19:15 | NUR ---
OPENING NOTE REPORT RECEIVED FROM DAYSHIFT NURSE. PATIENT RECEIVED LYING IN BED, WATCHING TV. NO S/S OF ACUTE DISTRESS. BREATHING EVEN AND UNLABORED. HOB RAISED, NASAL CANULA ATTACHED PROPERLY, ON 2L OF OXYGEN. PATIENT DENIES PAIN OR SOB. IV SITE IS PATENT, NO SIGNS OF INFILTRATION OR INFECTION NOTED. CALL LIGHT WITH PATIENT, DEMONSTRATED BACK PROPER USE. BED IS LOCKED AND AT LOWEST POSITION. WILL CONTINUE TO MONITOR.
[2020-08-10 20:00] VITALS: BP_SYST 147
[2020-08-10] MEDS: cefTRIAXone 1 GM in D5W 50 ML IV SCH (20:58)
--- NOTE | 2020-08-10 21:00 | NUR ---
ROUNDS/MEDPASS PATIENT AWAKE, WATCHING TV, DENIES PAIN OR SOB. NO SIGNS OF DISCOMFORT. SCHEDULED MEDICATIONS ADMINISTERED AT THIS TIME. IV ANTIBIOTIC HUNG, INFUSING WELL. CALL LIGHT WITH PATIENT. ALL NEEDS MET. WILL CONTINUE TO MONITOR.
[2020-08-10] MEDS: AZITHROMYCIN 500 MG in NS 250 ML IV SCH (21:21)
--- NOTE | 2020-08-10 23:00 | NUR ---
ROUNDS/AMBULATE/VOID PATIENT WALKING TO BATHROOM TO VOID, STEADY GAIT, TOLERATED WELL. NO S/S OF ACUTE DISTRESS. BREATHING EVEN AND UNLABORED. ALL NEEDS MET. CALL LIGHT WITH PATIENT. WILL CONTINUE TO MONITOR.
[2020-08-11] VITALS: BP_SYST 142
[2020-08-11] MEDS: ALBUTEROL MDI INHALATION 8 GM INH INH SCH ×7 (00:11→23:35)
--- NOTE | 2020-08-11 01:00 | NUR ---
ROUNDS PATIENT IN BED, ASLEEP. NO S/S OF ACUTE DISTRESS NOTED. BREATHING EVEN AND UNLABORED. CALL LIGHT WITH PATIENT. WILL CONTINUE TO MONITOR.
--- NOTE | 2020-08-11 03:00 | NUR ---
ROUNDS PATIENT ASLEEP. NO CHANGE FROM PREVIOUS CONDITION. ALL NEEDS MET. CALL LIGHT WITH PATIENT. WILL CONTINUE TO MONITOR.
--- NOTE | 2020-08-11 05:00 | NUR ---
ROUNDS PATIENT IN BED SLEEPING. NO SIGNS OF DISCOMFORT NOTED. CHEST RISE AND FALL EVEN BILATERALLY. CALL LIGHT WITH PATIENT. WILL CONTINUE TO MONITOR.
[2020-08-11] MEDS: DEXAMETHASONE SOD PHOSPHATE 10 MG/ML VIAL IVP SCH (05:45)
[2020-08-11] MEDS: NORMAL SALINE 5 ML DISP.SYRIN IVF SCH ×3 (05:45→21:00)
--- NOTE | 2020-08-11 06:18 | NUR ---
CLOSING NOTES PATIENT IN BED, RESTING, NO S/S OF ACUTE DISTRESS, PATIENT DENIES PAIN OR SOB. BREATHING EVEN AND UNLABORED. NASAL CANULA ATTACHED PROPERLY, ON 2L OF OXYGEN. IV SITE IS PATENT, NO SIGNS OF INFILTRATION OR INFECTION NOTED. ALL NEEDS MET THROUGHOUT SHIFT. FALL, SAFETY, AND ISOLATION PRECAUTIONS MAINTAINED THROUGHOUT SHIFT. WILL CONTINUE TO MONITOR UNTIL PATIENT CARE IS ENDORSED TO ONCOMING DAYSHIFT NURSE.
[2020-08-11 06:24] LABS: BASOPHILS % (AUTO) 0.1 % (0.0-2.0); EOSINOPHILS % (AUTO) 0.3 % (0.0-4.0); HEMATOCRIT 32.2 % (36-48); HEMOGLOBIN 11.1 g/dL (12.0-16.0); LYMPHOCYTES # (AUTO) 0.9 K/uL (1.0-5.5); LYMPHOCYTES % (AUTO) 9.4 % (20.5-51.5); MEAN CORPUSCULAR HEMOGLOBIN 30 pg (27-31); MEAN CORPUSCULAR HGB CONC 34 % (32-36); MEAN CORPUSCULAR VOLUME 88 fL (79.0-98.0); MONOCYTES # (AUTO) 0.9 K/uL (0.0-1.0); MONOCYTES % (AUTO) 8.7 % (1.7-9.3); NEUTROPHILS # (AUTO) 8.2 K/uL (1.8-7.7); NEUTROPHILS % (AUTO) 81.5 % (40.0-70.0); PLATELET COUNT (AUTO) 274 K/uL (130-430); RED BLOOD CELL COUNT(AUTO) 3.66 MIL/uL (4.2-6.2); RED CELL DISTRIBUTION WIDTH 12.9 % (9.0-15.0)
[2020-08-11 06:43] LABS: ALANINE AMINOTRANSFERASE 116 U/L (12-78); ALBUMIN 2.5 g/dL (3.4-4.8); ANION GAP 11 (5-15); ASPARTATE AMINOTRANSFERASE 48 U/L (10-37); CALCIUM 8.2 mg/dL (8.4-11.0); CHLORIDE 106 mmol/L (98-107); CREATININE 1.31 mg/dL (0.55-1.30); GLUCOSE 87 mg/dL (70-99); POTASSIUM 3.4 mmol/L (3.5-5.1); SODIUM SERUM 141 mmol/L (136-145); TOTAL BILIRUBIN 0.4 mg/dL (0.0-1.0); UREA NITROGEN, BLOOD 32 mg/dL (8-21)
[2020-08-11 08:00] VITALS: BP_SYST 130
--- NOTE | 2020-08-11 08:00 | NUR ---
initial notes rec patient awake alert with ivl on the l wrist and l forearm. no infiltration noted. with o2 at 2 liters via nasal cannula. no sob noted. resp easy and unlabored. no sob noted. call light within reached. bed to the lowest position and side rails up and locked.
[2020-08-11 08:06] LABS: C-REACTIVE PROTEIN QUANT 0.5 mg/dL (0-0.5)
[2020-08-11] MEDS: CHOLECALCIFEROL (VITAMIN D3) 2,000 UNIT TABLET PO SCH (08:57)
[2020-08-11] MEDS: ASCORBIC ACID 500 MG TABLET PO SCH (08:57)
[2020-08-11] MEDS: APIXABAN 2.5 MG TABLET PO SCH ×2 (09:16→21:00)
[2020-08-11 09:31] LABS: ERYTHROCYTE SEDIMENTATION RATE 43 MM/HR (0-20)
--- NOTE | 2020-08-11 10:00 | NUR ---
rounds due meds given and laura well. call light within reached. no osb noted.
--- NOTE | 2020-08-11 10:02 | NUR ---
Dietitian Recommendations *Continue regular diet. *Monitor BG, consider CCHO diet if BG remains elevated. *Continue immune boosters as ordered. Please see Nutritional Assessment for details. LIZZ, LUL
--- NOTE | 2020-08-11 10:07 | NUR ---
1005 PT PLACED ON ROOM AIR. RN AWARE. SAT 92%. WILL CONT TO MONITOR. Addendum: 08/11/20 at 1009 by Tracey Morgan RT Amended: Links added.
--- NOTE | 2020-08-11 10:12 | NUR ---
Discharge Planning: DCP faxed [facility] [place] (f [phone] p [phone]) DCP spoke to Alden (C [phone]) to make him aware. Addendum: 08/11/20 at 1438 by Lindsay Gonzalez DP DCP followed up with Joy at [facility] [place] (f [phone] p [phone]) per Joy a small oxygen tank will be delivered to bedside and to patient home. On patient chart at nurse station is a form for doctor to fill out and fax to [facility] [phone]. Addendum: 08/11/20 at 1441 by Lindsay Gonzalez DP Patient was accepted to [facility] ([phone]) and will contact pt upon discharge.
--- NOTE | 2020-08-11 10:30 | NUR ---
rounds pt was put on room air for 30 min. rechecked after and saturation ranges to 88 - 89% was put back on o2 and was 93%.
--- NOTE | 2020-08-11 10:40 | NUR ---
rounds pt was saturating at 88% on room air.
[2020-08-11 12:00] VITALS: BP_SYST 131
--- NOTE | 2020-08-11 12:00 | NUR ---
rounds up with pt at bedside. no sob noted. bed to the lowest position and side rails up and locked. call light within reached.
--- NOTE | 2020-08-11 13:25 | NUR ---
P.T. NOTES P.T. EVAL COMPLETED, REFER TO EVAL FOR DETAILS; AMBULATORY WITHOUT ASST DEVICE; O2 SAT ROOM AIR=83% W/ EXERTION, 87% AT REST; O2 N/C 3L=90-91% W/ EXERTION, 95% AT REST; ENDORSED TO NURSING.
--- NOTE | 2020-08-11 14:00 | NUR ---
rounds resting comfortably. call light within reached.
--- NOTE | 2020-08-11 15:30 | NUR ---
rounds o2 tank was delivered and at the nurses station. awaiting for dr roxi ruelas to come and d/c patient as per dr casarez
[2020-08-11 16:00] VITALS: BP_SYST 147
--- NOTE | 2020-08-11 18:32 | NUR ---
closing notes was seen by dr ruelas. o2 was brought to the room. no sob noted. bed too the lowest position and side rails up and locked. call light within reached.
--- NOTE | 2020-08-11 19:30 | NUR ---
OPENING NOTE REPORT RECEIVED FROM DAYSHIFT RN. PATIENT RECEIVED LYING IN BED, WATCHING TV. NO S/S OF ACUTE DISTRESS. BREATHING EVEN AND UNLABORED. HOB RAISED, NASAL CANULA ATTACHED PROPERLY, ON 3 L OF OXYGEN. PATIENT DENIES PAIN OR SOB. IV SITE IS PATENT, NO SIGNS OF INFILTRATION OR INFECTION NOTED. CALL LIGHT WITH PATIENT, DEMONSTRATED BACK PROPER USE. BED IS LOCKED AND AT LOWEST POSITION. WILL CONTINUE TO MONITOR.
[2020-08-11 20:20] VITALS: BP_SYST 142
[2020-08-11] MEDS: cefTRIAXone 1 GM in D5W 50 ML IV SCH (21:00)
--- NOTE | 2020-08-11 21:00 | NUR ---
MEDICATION PASS PATIENT AWAKE, WATCHING TV, DENIES PAIN OR SOB. NO SIGNS OF DISCOMFORT. SCHEDULED MEDICATIONS ADMINISTERED AT THIS TIME. IV ANTIBIOTIC HUNG, INFUSING WELL. CALL LIGHT WITH PATIENT. ALL NEEDS MET. WILL CONTINUE TO MONITOR.
--- NOTE | 2020-08-11 23:05 | NUR ---
RN ROUNDS: PATIENT IN BED, ASLEEP. NO S/S OF ACUTE DISTRESS NOTED. BREATHING EVEN AND UNLABORED. CALL LIGHT WITH PATIENT. WILL CONTINUE TO MONITOR.
--- NOTE | 2020-08-12 | NUR ---
NPO PT MADE NPO FOR ABDOMINAL ULTRASOUND IN THE MORNING. PT EDUCATED AND AWARE. NPO CONE PLACED AT BEDSIDE.
[2020-08-12 00:07] VITALS: BP_SYST 174
--- NOTE | 2020-08-12 02:10 | NUR ---
RN ROUNDS: PATIENT IN BED, ASLEEP. NO S/S OF ACUTE DISTRESS NOTED. BREATHING EVEN AND UNLABORED. CALL LIGHT WITH PATIENT. WILL CONTINUE TO MONITOR.
[2020-08-12] MEDS: ALBUTEROL MDI INHALATION 8 GM INH INH SCH ×4 (03:43→16:36)
--- NOTE | 2020-08-12 04:05 | NUR ---
RN ROUNDS: PATIENT IN BED, ASLEEP. NO S/S OF ACUTE DISTRESS NOTED. BREATHING EVEN AND UNLABORED. CALL LIGHT WITH PATIENT. WILL CONTINUE TO MONITOR.
[2020-08-12] MEDS: NORMAL SALINE 5 ML DISP.SYRIN IVF SCH (05:35)
[2020-08-12] MEDS: DEXAMETHASONE SOD PHOSPHATE 10 MG/ML VIAL IVP SCH (05:36)
--- NOTE | 2020-08-12 06:25 | NUR ---
CLOSING NOTES PATIENT IN BED, RESTING, NO S/S OF ACUTE DISTRESS, PATIENT DENIES PAIN OR SOB. BREATHING EVEN AND UNLABORED. NASAL CANULA ATTACHED PROPERLY, ON 3 L OF OXYGEN. IV SITE IS PATENT, NO SIGNS OF INFILTRATION OR INFECTION NOTED. PT NPO FOR ABDOMINAL ULTRASOUND THIS MORNING. ALL NEEDS MET THROUGHOUT SHIFT. FALL, SAFETY, AND ISOLATION PRECAUTIONS MAINTAINED THROUGHOUT SHIFT. WILL CONTINUE TO MONITOR UNTIL PATIENT CARE IS ENDORSED TO ONCOMING DAYSHIFT NURSE.
[2020-08-12 07:03] LABS: ALANINE AMINOTRANSFERASE 97 U/L (12-78); ALBUMIN 2.5 g/dL (3.4-4.8); ANION GAP 6 (5-15); ASPARTATE AMINOTRANSFERASE 33 U/L (10-37); CALCIUM 8.5 mg/dL (8.4-11.0); CHLORIDE 107 mmol/L (98-107); CREATININE 1.17 mg/dL (0.55-1.30); GLUCOSE 93 mg/dL (70-99); PHOSPHORUS 2.9 mg/dL (2.7-4.5); POTASSIUM 4.7 mmol/L (3.5-5.1); SODIUM SERUM 141 mmol/L (136-145); TOTAL BILIRUBIN 0.3 mg/dL (0.0-1.0); UREA NITROGEN, BLOOD 29 mg/dL (8-21)
[2020-08-12 07:04] LABS: BASOPHILS % (AUTO) 0.1 % (0.0-2.0); EOSINOPHILS % (AUTO) 0.5 % (0.0-4.0); HEMATOCRIT 31.5 % (36-48); HEMOGLOBIN 10.9 g/dL (12.0-16.0); LYMPHOCYTES # (AUTO) 0.8 K/uL (1.0-5.5); LYMPHOCYTES % (AUTO) 9.6 % (20.5-51.5); MEAN CORPUSCULAR HEMOGLOBIN 31 pg (27-31); MEAN CORPUSCULAR HGB CONC 35 % (32-36); MEAN CORPUSCULAR VOLUME 89 fL (79.0-98.0); MONOCYTES # (AUTO) 0.8 K/uL (0.0-1.0); MONOCYTES % (AUTO) 9.2 % (1.7-9.3); NEUTROPHILS # (AUTO) 6.9 K/uL (1.8-7.7); NEUTROPHILS % (AUTO) 80.6 % (40.0-70.0); PLATELET COUNT (AUTO) 276 K/uL (130-430); RED BLOOD CELL COUNT(AUTO) 3.55 MIL/uL (4.2-6.2); RED CELL DISTRIBUTION WIDTH 13.1 % (9.0-15.0); WHITE BLOOD COUNT (AUTO) 8.6 K/uL (4.8-10.8)
[2020-08-12 07:26] LABS: C-REACTIVE PROTEIN QUANT 0.8 mg/dL (0-0.5)
[2020-08-12 08:00] VITALS: BP_SYST 139
--- NOTE | 2020-08-12 08:00 | NUR ---
initial notes rec patient awake laert sitting at bedside. with ivl in place.. no infiltration noted. resp easy and unlabored.no sob noted.bed to the lowest position and side rails up and locked. call light within reached . seen by dr arboleda.
[2020-08-12 08:45] LABS: ERYTHROCYTE SEDIMENTATION RATE 42 MM/HR (0-20)
[2020-08-12] MEDS: CHOLECALCIFEROL (VITAMIN D3) 2,000 UNIT TABLET PO SCH (09:00)
[2020-08-12] MEDS: APIXABAN 2.5 MG TABLET PO SCH (09:00)
[2020-08-12] MEDS: ASCORBIC ACID 500 MG TABLET PO SCH (09:00)
--- NOTE | 2020-08-12 09:18 | NUR ---
Discharge Planning: DCP faxed certificate of medical need of oxygen with PT notes and nurse documentation to [facility] (f [phone] p [phone]) DCP to follow up.
--- NOTE | 2020-08-12 10:00 | NUR ---
rounds due meds were given and laura well. call light within reached. no sob noted.
--- NOTE | 2020-08-12 12:00 | NUR ---
rounds ambulated to the br and laura well. call light within reached. no osb noted.
--- NOTE | 2020-08-12 15:26 | NUR ---
rounds dr arroyo came and stated pt can be dc/ today. and willl have a tele confoernce with him in 1 week. will informed patient.
[2020-08-12 16:00] VITALS: BP_SYST 140
[2020-08-12] MEDS ORDERED: DEC4 PO (17:10)
[2020-08-12] MEDS ORDERED: Zinc Sulfate PO (17:10)
[2020-08-12] MEDS ORDERED: VITD2000 PO (17:10)
[2020-08-12] MEDS ORDERED: ALBMDI INH (17:10)
[2020-08-12] MEDS ORDERED: APIX2.5T PO (17:10)
[2020-08-12 17:49] VITALS: BP_SYST 140
--- NOTE | 2020-08-12 18:30 | NUR ---
closing notes pt was discharged after seen by dr ruelas. med rec discussed with patient and take home prescription. instructed re tele conference with dr arroyo after 1 week. id band and ivl were removed. was wheeled patient outside via wheelchair with her portable o2. needs met and pt stable .was met by outside.
== END 2020-08-12 18:30 | disposition home health service (06) | DRG 871 ==
LOC: SED 11:54 → STU 15:34
PROVIDERS: ADMIT Preventive Medicine Preventive Medicine/Occupational Environmental Medicine; ATTEND Preventive Medicine Preventive Medicine/Occupational Environmental Medicine
PROC: XW13325 Transfusion of Convalescent Plasma (Nonautologous) into Peripheral Vein, Percutaneous Approach, New Technology Group 5 (ICD-10-PCS; principal; 2020-08-07)
DX: A41.89 Other specified sepsis (principal); U07.1 COVID-19; E43 Unspecified severe protein-calorie malnutrition; J12.89 Other viral pneumonia; J96.01 Acute respiratory failure with hypoxia; N17.9 Acute kidney failure, unspecified; E87.1 Hypo-osmolality and hyponatremia; E83.39 Other disorders of phosphorus metabolism; R73.9 Hyperglycemia, unspecified; E87.6 Hypokalemia; E83.51 Hypocalcemia; N18.9 Chronic kidney disease, unspecified; R74.01 Elevation of levels of liver transaminase levels; D64.9 Anemia, unspecified; D72.810 Lymphocytopenia; Z79.01 Long term (current) use of anticoagulants; Z90.49 Acquired absence of other specified parts of digestive tract; Z68.30 Body mass index [BMI] 30.0-30.9, adult
CPT/HCPCS: 36415; 36430; 36600; 71045; 76700-TC; 76770; 80048; 80053; 82550-TC; 82570-TC; 82728; 82803-TC; 83605; 83615-TC; 83735-TC; 83874; 83880; 83935-TC; 84100-TC; 84302-TC; 84484; 84560; 85025; 85379; 85384-TC; 85610-TC; 85651-TC; 85730-TC; 86140; 86886; 86900; 86901; 87040-TC; 93306; 94640; 96361; 96374; 97163; 99291; G0378; J0456; J0696; J1100; J1644; J7050; J7060; P9017; U0003